=== PATIENT | female | born 1985 | race Caucasian/White ===

== ENCOUNTER 2023-01-28 08:42 | Observation (INO) ==
[2023-01-28] MEDS ORDERED: SOLU-Medrol 125 MG VIAL IVP ONE (09:06)
[2023-01-28] MEDS ORDERED: TORADOL 30 MG VIAL IVP ONE (09:06)
[2023-01-28] MEDS ORDERED: SOLU-Medrol 125 MG VIAL ONE (09:11)
[2023-01-28] MEDS ORDERED: TORADOL 30 MG VIAL ONE (09:12)
[2023-01-28] MEDS ORDERED: NS 1,000 ML IV 1,000 ML ONE (09:12)
[2023-01-28] MEDS: NS 1,000 ML IV 1,000 ML IV SCH ×2 (09:23→19:35)
[2023-01-28 09:27] LABS: BASOPHILS # (AUTO) 0.1 X10^3/uL (0.0-0.1); BASOPHILS % (AUTO) 0.5 % (0.2-1.0); EOSINOPHILS % (AUTO) 0.3 % (0.9-2.9); HEMOGLOBIN 12.2 g/dL (12.0-16.0); LYMPHOCYTES % (AUTO) 19.6 % (21.0-51.0); MEAN CORPUSCULAR HEMOGLOBIN 30.4 pg (27.0-34.0); MEAN CORPUSCULAR HGB CONC 33.8 g/dL (33.0-35.0); MEAN CORPUSCULAR VOLUME 89.9 fL (80.0-100.0); MEAN PLATELET VOLUME 8.4 fL (7.4-11.0); MONOCYTES % (AUTO) 6.6 % (0.0-13.0); NEUTROPHILS # (AUTO) 11.1 x10^3/uL (2.2-4.8); PLATELET COUNT 283 X10^3/uL (150.0-450.0); RED BLOOD COUNT 4.01 X10^6/uL (3.5-5.4); RED CELL DISTRIBUTION WIDTH 13.2 % (11.6-16.5); WHITE BLOOD COUNT 15.2 X10^3/uL (3.6-10.0)
--- NOTE | 2023-01-28 09:33 | DR.EXTPAIN ---
HPI Time seen Time Seen by Provider: 01/28/23 09:20 PCP Primary Care Physician: BRYAN GAGNON HPI Comment HPI Comment: PATIENT IS 37YR OLD FEMALE IN ER WITH GENERALIZED JOINT PAIN AND SWELLING. SEEOPPED HER CHOLESTEROL MEDICATION. NO FEVER.N IN ER SATURDAY AND GIVRN IM TORADOL AND STEROID IM ONE TIME DOSE. HELPED BUT PAIN AND SWELLING IS WORSE TODAY. NO FEVER. Complaint/Symptoms Chief Complaint Doctor Comments: GENERALIZED JOINT SWELLING AND PAIN. Chief Complaint:: Pt states that starting with the right wrist having pain and redness and swelling and now its all of her joints and they are throbbing and aching and swollen. Pt states that she was seen Saturday here in the er and was given a steroid and toradol shot and the steroid helped a little but its still bad. She was told to follow up with Nadia Gagnon today but office staff told her that they couldnt see her today so pt felt like she needed to come back here Self Treatment fo Chief Complaint: norco without relief COVID-19 Coronavirus risk:travel/contact w/high risk person: No Has patient experienced Coronavirus symptoms: No Nurses notes reviewed Nurses Notes Review: Yes Source History Provided: Patient Mode of arrival Mode of Arrival: Ambulatory Timing Onset of Chief Complaint: 01/24/23 PMH PMH Past Medical History: No Past Medical History: Dyslipidemia and [place] Past Surgical History: Yes Surgical History: Appendectomy, Cholecystectomy and [employer]OSPITAL [employer] Surgery Family History History of Family Medical Conditions: Yes Family Medical History: Diabetes Mellitus and Hypertension Social History Does patient currently use any type of tobacco product: No Have you used tobacco products in the last 12 months: No Type of Tobacco Use: None Do you use any recreational Drugs:: No Lives With: Family Lives Where: Home Travel Risk Coronavirus risk:travel/contact w/high risk person: No Has patient experienced Coronavirus symptoms: No Infectious screening In the last 2 months have you had wt loss of >10#?: NO Have you had fever, night sweats or hemotysis?: No Have you traveled outside the country in the last 6 months?: No Isolation: Standard ROS Review of Systems Constitutional: No Symptoms Reported Eyes: No Symptoms Reported ENTM: No Symptoms Reported; negative Nose Discharge or Nose Congestion Respiratoy: No Symptoms Reported; negative Moist Cough, Short of Breath or Wheez ing Cardiovascular: No Symptoms Reported; negative Chest Pain Gastrointestinal/Abdominal: No Symptoms Reported; negative Abdominal Pain, Diarrhea, Nausea or Vomiting Genitourinary: No Symptoms Reported; negative Dysuria Neurological: No Symptoms Reported; negative Headache, Weakness or Dizziness Musculoskeletal: Joint Pain (GENERALIZED.) and Joint Swelling (GENERALIZED.) Integumentary: No Symptoms Reported; negative Rash Hematologic/Lymphatic: Easy Bleeding and Easy Bruising Endocrine: No Symptoms Reported; negative Increased Thirst or Increased Urine Psychiatric: No Symptoms Reported All Other Systems: Reviewed and Negative PE Vital Signs Vitals: Vital Signs Temperature 98.2 F Pulse Rate 95 Respiratory Rate 20 Respiratory Rate 20 Blood Pressure 135/81 O2 Sat by Pulse Oximetry 98 01/28/23 08:54 01/28/23 09:23 01/28/23 09:14 Temperature 98.2 F Pulse Rate 95 H Respiratory Rate 20 20 Respiratory Effort Normal Non-Labored O2 Sat by Pulse Oximetry 98 Oxygen Delivery Method Room Air Blood Pressure 135/81 Weight 145 lb 170 lb General Limitations: No Limitations General Appearance: Alert and In No Apparent Distress Head Head Exam: Normal Inspection Eyes Eye exam: Normal Appearance; negative Scleral Icterus or Conjunctival Injection ENT ENT Exam: Normal Exam, Normal Oropharynx, Normal External Ear Exam and TM's Normal Bilaterally Neck Neck Exam: Normal Inspection and Trachea Midline; negative Tenderness Chest Chest Inspection: Normal Inspection and Symmetric Chest Wall Rise; negative Tenderness Respiratory Respiratory Exam: Normal Lung Sounds Bilat; negative Accessory Muscle Use, Chest Wall Tenderness or Respiratory Distress Respiratory Exam: Bilateral: Clear to Auscultation Cardiovascular Cardiovascular Exam: Regular Rate, Normal Rhythm and Normal Heart Sounds; negative Systolic Murmur or Diastolic Murmur Abdominal Exam Abdominal Exam: Normal Inspection, Normal Bowel Sounds, Soft and Tenderness Extremities Extremities Exam: Tenderness (TENDERNESS JOINTS) and Joint Swelling Upper Extremities Shoulder Exam: Tenderness and Swelling Elbow Exam: Tenderness and Swelling Lower Extremities Hip/Pelvis Exam: Tenderness Knee Exam: Tenderness and Swelling Back Back Exam: negative (R) CVA Tenderness or (L) CVA Tenderness Neurological Neurological Exam: Alert, Oriented X3, CN II-XII Intact, Motor Sensory Deficit and Reflexes Normal Psychiatric Psychiatric Exam: Normal Affect and Normal Mood Skin Skin Exam: Intact MDM Differential Diagnosis Differential Diagnosis: Other (GENERALIZED JOINT PAIN, MUSCULOSKELETAL PAIN.) COURSE Treatment Treatment: SEE ORDERS DONE WHILE PATIENT WAS IN ER. Consultation Consultation Comments: DISCUSSED PATIENT WITH DR. TILLEY. DEDRA ADMIT PATIENT. Education/Counseling Education/Counseling: Patient ROR Labs Reviewed Laboratory Results Reviewed?: Yes Result Diagrams: 01/29/23 04:51 01/29/23 04:51 Laboratory: WBC 15.2 X10^3/uL (3.6-10.0) H 01/28/23 09:18 RBC 4.01 X10^6/uL (3.5-5.4) 01/28/23 09:18 Hgb 12.2 g/dL (12.0-16.0) 01/28/23 09:18 Hct 36.0 % (36.0-47.0) 01/28/23 09:18 MCV 89.9 fL (80.0-100.0) 01/28/23 09:18 MCH 30.4 pg (27.0-34.0) 01/28/23 09:18 MCHC 33.8 g/dL (33.0-35.0) 01/28/23 09:18 RDW 13.2 % (11.6-16.5) 01/28/23 09:18 Plt Count 283 X10^3/uL (150.0-450.0) 01/28/23 09:18 MPV 8.4 fL (7.4-11.0) 01/28/23 09:18 Neut % (Auto) 73.0 % (42.0-75.0) 01/28/23 09:18 Lymph % (Auto) 19.6 % (21.0-51.0) L 01/28/23 09:18 [place] % (Auto) 6.6 % (0.0-13.0) 01/28/23 09:18 Eos % (Auto) 0.3 % (0.9-2.9) L 01/28/23 09:18 Baso % (Auto) 0.5 % (0.2-1.0) 01/28/23 09:18 Neut # (Auto) 11.1 x10^3/uL (2.2-4.8) H 01/28/23 09:18 Lymph # (Auto) 3.0 X10^3/uL (1.3-2.9) H 01/28/23 09:18 [place] # (Auto) 1.0 x10^3/uL (0.3-0.8) H 01/28/23 09:18 Eos # (Auto) 0.0 x10^3/uL (0.0-0.2) 01/28/23 09:18 Baso # (Auto) 0.1 X10^3/uL (0.0-0.1) 01/28/23 09:18 Absolute Nucleated RBC 0.0 /100WBC 01/28/23 09:18 ESR 38 MM/HOUR (0-20) H 01/28/23 09:18 Sodium 140 mmol/L (136-145) 01/28/23 09:18 Corrected Sodium TNP 01/28/23 09:18 Potassium 3.6 mmol/L (3.5-5.1) 01/28/23 09:18 Chloride 106 mmol/L (98-107) 01/28/23 09:18 Carbon Dioxide 23.7 mmol/L (21-32) 01/28/23 09:18 BUN 13 mg/dL (7-18) 01/28/23 09:18 Creatinine 0.61 mg/dL (0.55-1.02) 01/28/23 09:18 Est GFR (MDRD) Af Amer > 60 (>60) 01/28/23 09:18 Est GFR (MDRD) Non-Af > 60 (>60) 01/28/23 09:18 Glucose 83 mg/dL (65-99) 01/28/23 09:18 Hemoglobin A1c 5.2 % 01/28/23 09:18 Calcium 8.1 mg/dL (8.5-10.1) L 01/28/23 09:18 Corrected Calcium 8.7 mg/dL (8.5-10.1) 01/28/23 09:18 Magnesium 1.8 mg/dL (2.0-2.9) L 01/28/23 09:18 Total Bilirubin 0.30 mg/dL (0.2-1.0) 01/28/23 09:18 AST 12 Units/L (15-37) L 01/28/23 09:18 ALT 35 Units/L (12-78) 01/28/23 09:18 Alkaline Phosphatase 101 Units/L (46-116) 01/28/23 09:18 C-Reactive Protein 52.40 mg/L (0-3.0) H 01/28/23 09:18 Total Protein 6.7 g/dL (6.4-8.2) 01/28/23 09:18 Albumin 3.2 g/dL (3.4-5.0) L 01/28/23 09:18 Globulin 3.5 g/dL (2.5-4.5) 01/28/23 09:18 Albumin/Globulin Ratio 0.9 Ratio (1.1-2.1) L 01/28/23 09:18 TSH 3rd Generation 2.813 uIU/mL (0.358-3.74) 01/28/23 09:18 Opioid Opioid Risk Tool Age (Roberto box if 16-45): Yes History of Preadolescent Sexual Abuse: No Total: 1 Total Score Risk Category: Low Risk Copyright: Loi BAEZ predicting aberrant behaviors Discharge Plan Diagnosis Discharge Problem: Generalized joint pain Discharge Plan Patient Disposition: ADMITTED INPATIENT Condition: Stable
[2023-01-28 09:34] LABS: ERYTHROCYTE SEDIMENTATION RATE 38 MM/HOUR (0-20)
[2023-01-28 09:40] LABS: ALANINE AMINOTRANSFERASE 35 Units/L (12-78); ALBUMIN 3.2 g/dL (3.4-5.0); ALKALINE PHOSPHATASE 101 Units/L (46-116); ASPARTATE AMINO TRANSFERASE 12 Units/L (15-37); BLOOD UREA NITROGEN 13 mg/dL (7-18); CALCIUM 8.1 mg/dL (8.5-10.1); CARBON DIOXIDE 23.7 mmol/L (21-32); CHLORIDE 106 mmol/L (98-107); COR CA(FOR HYPOALB) 8.7 mg/dL (8.5-10.1); CREATININE 0.61 mg/dL (0.55-1.02); GLUCOSE 83 mg/dL (65-99); POTASSIUM 3.6 mmol/L (3.5-5.1); SODIUM 140 mmol/L (136-145); TOTAL PROTEIN 6.7 g/dL (6.4-8.2); eGFR NON BLACK RACES > 60 (>60)
[2023-01-28 10:19] LABS: HEMOGLOBIN A1C 5.2 %
[2023-01-28 10:21] LABS: MAGNESIUM 1.8 mg/dL (2.0-2.9); TSH (3RD GENERATION) 2.813 uIU/mL (0.358-3.74)
[2023-01-28 10:57] VITALS: BMI 27.6
[2023-01-28] MEDS ORDERED: KLOR-CON PO PRN (11:05)
[2023-01-28] MEDS ORDERED: K-RIDER 10 MEQ/NS 100 ML 10 MEQ/100 ML BAG IV PRN (11:05)
[2023-01-28] MEDS ORDERED: MICRO K EXTEN CAP 10 MEQ PO PRN (11:05)
[2023-01-28] MEDS ORDERED: K-DUR TAB 20 MEQ PO PRN (11:05)
[2023-01-28] MEDS ORDERED: POTASSIUM CHL 40 MEQ/NS 0.45% 500 ML IV PRN (11:05)
[2023-01-28] MEDS ORDERED: POTASSIUM CHL 60 MEQ/NS 0.45% 500 ML IV PRN (11:05)
[2023-01-28] MEDS ORDERED: POTASSIUM CHLORIDE LIQ PO PRN (11:05)
[2023-01-28] MEDS: MAGNESIUM SULFATE 1 GRAM/100 mL PREMIX 1 G/100 ML BAG IV PRN ×2 (11:38→13:29)
[2023-01-28] MEDS: TORADOL 15 MG VIAL IVP PRN ×2 (11:39→19:35)
[2023-01-28 11:41] LABS: FREE T4 (FREE THYROXINE) 1.05 ng/dL (0.76-1.46)
[2023-01-28 12:00] LABS: BILIRUBIN,URINE NEGATIVE (NEGATIVE); BLOOD/HEMOGLOBIN,URINE 3+ (NEGATIVE); GLUCOSE, URINE NEGATIVE (NEGATIVE); KETONES,URINE NEGATIVE (NEGATIVE); LEUKOCYTE ESTERASE ,URINE NEGATIVE (NEGATIVE); NITRITES,URINE NEGATIVE (NEGATIVE); PROTEIN,URINE NEGATIVE (NEGATIVE); UROBILINOGEN,URINE NORMAL (NORMAL)
[2023-01-28 12:17] LABS: APPEARANCE,URINE CLEAR (CLEAR); BACTERIA,URINE NEGATIVE /HPF (NEGATIVE); COLOR,URINE STRAW (YELLOW); SQUAMOUS EPITHELIAL CELL,UR RARE /HPF (NEGATIVE)
[2023-01-28 12:26] LABS: RHEUMATOID FACTOR NEGATIVE (NEGATIVE)
[2023-01-28] MEDS: SOLU-Medrol 125 MG VIAL IVP SCH ×2 (13:22→21:28)
[2023-01-28] MEDS: LOPRESSOR TAB 25 MG PO SCH (20:38)
[2023-01-28] MEDS: ATARAX TAB 10 MG PO SCH (20:40)
[2023-01-28] MEDS: RESTORIL CAP 15 MG PO PRN (23:38)
[2023-01-29] MEDS: SOLU-Medrol 125 MG VIAL IVP SCH ×3 (05:12→20:17)
[2023-01-29] MEDS: NS 1,000 ML IV 1,000 ML IV SCH ×4 (05:13→18:38)
[2023-01-29 05:24] LABS: BASOPHILS % (AUTO) 0.2 % (0.2-1.0); HEMATOCRIT 33.5 % (36.0-47.0); HEMOGLOBIN 11.6 g/dL (12.0-16.0); LYMPHOCYTES # (AUTO) 1.5 X10^3/uL (1.3-2.9); LYMPHOCYTES % (AUTO) 8.4 % (21.0-51.0); MEAN CORPUSCULAR HEMOGLOBIN 30.9 pg (27.0-34.0); MEAN CORPUSCULAR HGB CONC 34.6 g/dL (33.0-35.0); MEAN CORPUSCULAR VOLUME 89.4 fL (80.0-100.0); MEAN PLATELET VOLUME 8.6 fL (7.4-11.0); MONOCYTES # (AUTO) 0.7 x10^3/uL (0.3-0.8); MONOCYTES % (AUTO) 3.8 % (0.0-13.0); NEUTROPHILS % (AUTO) 87.6 % (42.0-75.0); PLATELET COUNT 303 X10^3/uL (150.0-450.0); RED BLOOD COUNT 3.75 X10^6/uL (3.5-5.4); RED CELL DISTRIBUTION WIDTH 12.8 % (11.6-16.5); WHITE BLOOD COUNT 18.2 X10^3/uL (3.6-10.0)
[2023-01-29 05:32] LABS: ALANINE AMINOTRANSFERASE 101 Units/L (12-78); ALBUMIN 2.8 g/dL (3.4-5.0); ALKALINE PHOSPHATASE 106 Units/L (46-116); ASPARTATE AMINO TRANSFERASE 46 Units/L (15-37); BLOOD UREA NITROGEN 10 mg/dL (7-18); CALCIUM 7.9 mg/dL (8.5-10.1); CHLORIDE 109 mmol/L (98-107); CHOL/HDL RATIO 3.4 (0.0-5.0); CHOLESTEROL 170 mg/dL (0-200); COR CA(FOR HYPOALB) 8.9 mg/dL (8.5-10.1); COR NA(FOR HYPERGLY) 143 mmol/L (136-145); CREATININE 0.47 mg/dL (0.55-1.02); GLUCOSE 122 mg/dL (65-99); HDL CHOLESTEROL 50 mg/dL (40-60); MAGNESIUM 2.3 mg/dL (2.0-2.9); POTASSIUM 4.2 mmol/L (3.5-5.1); SODIUM 142 mmol/L (136-145); TOTAL PROTEIN 6.2 g/dL (6.4-8.2); TRIGLYCERIDES 45 mg/dL (0-150); eGFR NON BLACK RACES > 60 (>60)
[2023-01-29] MEDS: LOPRESSOR TAB 25 MG PO SCH ×2 (08:41→20:16)
[2023-01-29] MEDS: PLAVIX PO SCH (08:42)
[2023-01-29] MEDS: TORADOL 15 MG VIAL IVP PRN (11:15)
[2023-01-29] MEDS: ROCEPHIN VIAL 1 GRAM 1 G in NS 100 ML IV 100 ML IV SCH (15:03)
[2023-01-29] MEDS: PROTONIX INJ 40 MG VIAL IVP SCH (15:03)
--- NOTE | 2023-01-29 17:29 | DR.H&P ---
H&P - History & Physical for Day of: H&P Date: 01/28/23 - Chief Complaint Chief Complaint: joint pain, fever, joint swelling - History of Present Illness History of Present Illness: Pt is 37 WF, ER admission after presenting with co that starting with the right wrist having pain and redness and swelling and now its all of her joints and they are throbbing and aching and swollen. Pt states that she was seen Saturday here in the er and was given a steroid and toradol shot and the steroid helped a little but its still bad. Pt reports she had a "heart attack" last month and had heart cath in [place] and was started on lipitor at that time. - Past Medical History Past Medical History: OR, Dyslipidemia - Past Surgical History Surgical History: Appendectomy, Cholecystectomy - Family History Family Medical History: Diabetes Mellitus, Hypertension - Social History Does patient currently use any type of tobacco product: No Have you used tobacco products in the last 12 months: No Type of Tobacco Use: None Does any household member use tobacco: No Alcohol Use: None Drug Use: None - Review of Systems Constitutional: Fever, Malaise Eyes: No Symptoms Reported ENT: No Symptoms Reported Respiratory: No Symptoms Reported Cardiovascular: No Symptoms Reported Gastrointestinal: Nausea Genitourinary: No Symptoms Reported Musculoskeletal: Shoulder Pain, Arm Pain, Back Pain, Hand Pain, Foot Pain Skin: Other (redness to hand joints bilaterally) Neurological: No Symptoms Reported - Physical Exam Vital Signs: Vital Signs Temperature 98.7 F Temperature 98.5 F Pulse Rate [Right Brachial] 66 Pulse Rate [Right Brachial] 82 Respiratory Rate 20 Respiratory Rate 20 Respiratory Rate 20 Respiratory Rate 18 Blood Pressure [Right Arm] 122/65 Blood Pressure [Right Arm] 128/62 O2 Sat by Pulse Oximetry 98 O2 Sat by Pulse Oximetry 95 01/29/23 16:00 Temperature 98.7 F Temperature Source Oral Pulse Rate [Right Brachial] 66 Pulse Assessment Method [Right Brachial] Dinamap Respiratory Rate 20 O2 Sat by Pulse Oximetry 98 Oxygen Delivery Method Room Air Blood Pressure [Right Arm] 122/65 Blood Pressure Mean [Right Arm] 84 Blood Pressure Source [Right Arm] Automatic Cuff Blood Pressure Position [Right Arm] Semi Mathis's Oriented: Normal Eyes: Normal Ear: Normal Nose: Normal Throat: Exudate Respiratory: RLL Diminished, LLL Diminished Cardiovascular: Normal. negative: Edema : Normal Auscultation: Bowel Sounds: Normal Palpation: Normal Tenderness: Normal Skin: Decreased Turgur, Red, Tender (base index fingers, knuckles ) Musculoskeletal: Right, Left, Elbow, Wrist, Hand, Ankle, Swelling, Tender Psychiatric: Anxiety Affect: Anxious, Depressed Speech Pattern: Appropriate - Assessment/Plan (1) Multiple joint pain Status: Acute Plan: ADMIT, CRP AND SED RATE ON ADMISSION. PAIN CONTROL, IV SOLU MEDROL. RA F ACTOR, ALLISON AND URIC ACID ON ADMISSION. REPEAT AM LABS, VERIFY HOME MEDICATIONS (2) Redness of joint Status: Acute (3) Fever Status: Acute - Allergies Allergies/Adverse Reactions: Allergies Allergy/AdvReac Type Severity Reaction Status Date / Time No Known Drug Allergies Allergy Verified 12/15/20 11:30 - Medications Home Medications: Home Medications Medication Instructions Recorded Confirmed atorvastatin 80 mg tablet 80 mg PO QPM 01/26/23 01/28/23 clopidogrel 75 mg tablet 75 mg PO QDAY 01/26/23 01/28/23 ergocalciferol (vitamin D2) 1,250 1,250 mcg PO QWEEK 01/26/23 01/28/23 mcg (50,000 unit) capsule hydroxyzine HCl 10 mg tablet 10 tab PO QPM 01/26/23 01/28/23 metoprolol tartrate 25 mg tablet 12.5 mg PO BID 01/26/23 01/28/23 azithromycin 250 mg tablet See Rx Instructions .Route .COMPLEX 01/28/23 01/28/23
--- NOTE | 2023-01-29 17:32 | PCM.PROG ---
Progress Note - Progress Note for Day of Date of Exam: 01/29/23 - Subjective Subjective: PT IS 37 WF ER ADMISSION ON 01/28 WITH CO NEW ONSET JOINT PAIN, REDNESS AND SWELLING. PT HAD CRP AND SED RATE ELEVATED ON ADMISSION. PT HAD RA FACTOR, ALLISON AND URIC ACID OBTAINED ON ADMISSION. PT REPORTS SHE HAD SORE THROAT AND LOW GRADE FEVER WITH SWOLLEN NECK LYMPH NODES ~1 WEEK AGO. THROAT CULTUR ORDERED, PT STARTED ON ROCEPHIN 1GM DAILY AND BC OBTAINED. PLAN TO REPEAT AM CRP AND SED RATE. - Past Medical Family Social History Past Med/Fam/Surg Hx: No changes since H&P Allergies: Allergies No Known Drug Allergies Allergy (Verified 12/15/20 11:30) - Review of Systems ROS: No change since H&P - Vital Signs and I&O's Vital Signs: Vital Signs Temperature 98.7 F Temperature 98.5 F Pulse Rate [Right Brachial] 66 Pulse Rate [Right Brachial] 82 Respiratory Rate 20 Respiratory Rate 20 Respiratory Rate 20 Respiratory Rate 18 Blood Pressure [Right Arm] 122/65 Blood Pressure [Right Arm] 128/62 O2 Sat by Pulse Oximetry 98 O2 Sat by Pulse Oximetry 95 01/29/23 16:00 Temperature 98.7 F Temperature Source Oral Pulse Rate [Right Brachial] 66 Pulse Assessment Method [Right Brachial] Dinamap Respiratory Rate 20 O2 Sat by Pulse Oximetry 98 Oxygen Delivery Method Room Air Blood Pressure [Right Arm] 122/65 Blood Pressure Mean [Right Arm] 84 Blood Pressure Source [Right Arm] Automatic Cuff Blood Pressure Position [Right Arm] Semi Mathis's Intake and Output: Intake & Output 01/27/23 01/28/23 01/29/23 01/30/23 11:59 11:59 11:59 11:59 Intake Total 3327 / 3327 240 / 240 Balance 3327 / 3327 240 / 240 - Physical Exam Oriented: Normal Eyes: Normal Ear: Normal Nose: Normal Throat: Exudate Respiratory: Diminished Cardiovascular: Normal. negative: Edema : Normal Auscultation: Bowel Sounds: Normal Tenderness: Normal Skin: Decreased Turgur, Red, Tender (base index fingers, knuckles ) Musculoskeletal: Right, Left, Elbow, Wrist, Hand, Ankle, Swelling, Tender Psychiatric: Anxiety Affect: Anxious, Depressed Speech Pattern: Appropriate - Laboratory and Diagnostics Result Diagrams: 01/29/23 04:51 01/29/23 04:51 Labs: 01/28/23 11:35 Urine,Clean Catch Urine Culture - Preliminary Laboratory WBC 18.2 X10^3/uL (3.6-10.0) H 01/29/23 04:51 RBC 3.75 X10^6/uL (3.5-5.4) 01/29/23 04:51 Hgb 11.6 g/dL (12.0-16.0) L 01/29/23 04:51 Hct 33.5 % (36.0-47.0) L 01/29/23 04:51 MCV 89.4 fL (80.0-100.0) 01/29/23 04:51 MCH 30.9 pg (27.0-34.0) 01/29/23 04:51 MCHC 34.6 g/dL (33.0-35.0) 01/29/23 04:51 RDW 12.8 % (11.6-16.5) 01/29/23 04:51 Plt Count 303 X10^3/uL (150.0-450.0) 01/29/23 04:51 MPV 8.6 fL (7.4-11.0) 01/29/23 04:51 Neut % (Auto) 87.6 % (42.0-75.0) H 01/29/23 04:51 Lymph % (Auto) 8.4 % (21.0-51.0) L 01/29/23 04:51 [place] % (Auto) 3.8 % (0.0-13.0) 01/29/23 04:51 Eos % (Auto) 0.0 % (0.9-2.9) L 01/29/23 04:51 Baso % (Auto) 0.2 % (0.2-1.0) 01/29/23 04:51 Neut # (Auto) 16.0 x10^3/uL (2.2-4.8) H 01/29/23 04:51 Lymph # (Auto) 1.5 X10^3/uL (1.3-2.9) 01/29/23 04:51 [place] # (Auto) 0.7 x10^3/uL (0.3-0.8) 01/29/23 04:51 Eos # (Auto) 0.0 x10^3/uL (0.0-0.2) 01/29/23 04:51 Baso # (Auto) 0.0 X10^3/uL (0.0-0.1) 01/29/23 04:51 Absolute Nucleated RBC 0.0 /100WBC 01/29/23 04:51 ESR 41 MM/HOUR (0-20) H 01/29/23 04:51 Sodium 142 mmol/L (136-145) 01/29/23 04:51 Corrected Sodium 143 mmol/L (136-145) 01/29/23 04:51 Potassium 4.2 mmol/L (3.5-5.1) 01/29/23 04:51 Chloride 109 mmol/L (98-107) H 01/29/23 04:51 Carbon Dioxide 24.0 mmol/L (21-32) 01/29/23 04:51 BUN 10 mg/dL (7-18) 01/29/23 04:51 Creatinine 0.47 mg/dL (0.55-1.02) L 01/29/23 04:51 Est GFR (MDRD) Af Amer > 60 (>60) 01/29/23 04:51 Est GFR (MDRD) Non-Af > 60 (>60) 01/29/23 04:51 Glucose 122 mg/dL (65-99) H 01/29/23 04:51 Hemoglobin A1c 5.2 % 01/28/23 09:18 Calcium 7.9 mg/dL (8.5-10.1) L 01/29/23 04:51 Corrected Calcium 8.9 mg/dL (8.5-10.1) 01/29/23 04:51 Magnesium 2.3 mg/dL (2.0-2.9) 01/29/23 04:51 Total Bilirubin 0.10 mg/dL (0.2-1.0) L 01/29/23 04:51 AST 46 Units/L (15-37) H 01/29/23 04:51 ALT 101 Units/L (12-78) H 01/29/23 04:51 Alkaline Phosphatase 106 Units/L (46-116) 01/29/23 04:51 Creatine Kinase 38 Units/L (26-192) 01/28/23 11:12 C-Reactive Protein 60.50 mg/L (0-3.0) H 01/29/23 04:51 Total Protein 6.2 g/dL (6.4-8.2) L 01/29/23 04:51 Albumin 2.8 g/dL (3.4-5.0) L 01/29/23 04:51 Globulin 3.4 g/dL (2.5-4.5) 01/29/23 04:51 Albumin/Globulin Ratio 0.8 Ratio (1.1-2.1) L 01/29/23 04:51 Triglycerides 45 mg/dL (0-150) 01/29/23 04:51 Cholesterol 170 mg/dL (0-200) 01/29/23 04:51 LDL Cholesterol, Calc 111 mg/dL (0-100) H 01/29/23 04:51 HDL Cholesterol 50 mg/dL (40-60) 01/29/23 04:51 Cholesterol/HDL Ratio 3.4 (0.0-5.0) 01/29/23 04:51 Free T4 1.05 ng/dL (0.76-1.46) 01/28/23 11:12 TSH 3rd Generation 2.813 uIU/mL (0.358-3.74) 01/28/23 09:18 Specimen Type Clean catch urine 01/28/23 11:35 Urine Color Straw (YELLOW) 01/28/23 11:35 Urine Appearance Clear (CLEAR) 01/28/23 11:35 Urine pH 6.0 (5.0 - 8.0) 01/28/23 11:35 Ur Specific [place] 1.010 (1.000-1.030) 01/28/23 11:35 Urine Protein Negative (NEGATIVE) 01/28/23 11:35 Urine Glucose (UA) Negative (NEGATIVE) 01/28/23 11:35 Urine Ketones Negative (NEGATIVE) 01/28/23 11:35 Urine Blood 3+ (NEGATIVE) 01/28/23 11:35 Urine Nitrite Negative (NEGATIVE) 01/28/23 11:35 Urine Bilirubin Negative (NEGATIVE) 01/28/23 11:35 Urine Urobilinogen Normal (NORMAL) 01/28/23 11:35 Ur Leukocyte Esterase Negative (NEGATIVE) 01/28/23 11:35 Urine RBC 3-5 /HPF (0-3) A 01/28/23 11:35 Urine WBC None seen /HPF (0-5) 01/28/23 11:35 Ur Squamous Epith Cells Rare /HPF (NEGATIVE) 01/28/23 11:35 Urine Bacteria Negative /HPF (NEGATIVE) 01/28/23 11:35 Ur Culture Indicated? No/not indicated 01/28/23 11:35 Rheumatoid Factor Negative (NEGATIVE) 01/28/23 11:12 Monoscreen Negative (NEGATIVE) 01/29/23 04:51 - Plan (1) Multiple joint pain Status: Acute Plan: CRP AND SED RATE ON ADMISSION. PAIN CONTROL, IV SOLU MEDROL. RA FACTOR, ALLISON AND URIC ACID ON ADMISSION. REPEAT AM LABS, VERIFY HOME MEDICATIONS (2) Redness of joint Status: Acute (3) Fever Status: Acute
[2023-01-29] MEDS ORDERED: TYLENOL 325 MG TAB PO PRN (19:09)
[2023-01-29] MEDS: ATARAX TAB 10 MG PO SCH (20:14)
[2023-01-29] MEDS: RESTORIL CAP 15 MG PO PRN (22:36)
[2023-01-29] MEDS: NORCO 5/325 MG TAB PO PRN (23:14)
[2023-01-30] MEDS: NS 1,000 ML IV 1,000 ML IV SCH ×4 (00:48→18:04)
[2023-01-30 05:35] LABS: BASOPHILS % (AUTO) 0.1 % (0.2-1.0); HEMATOCRIT 31.4 % (36.0-47.0); HEMOGLOBIN 10.8 g/dL (12.0-16.0); LYMPHOCYTES # (AUTO) 2.6 X10^3/uL (1.3-2.9); LYMPHOCYTES % (AUTO) 12.7 % (21.0-51.0); MEAN CORPUSCULAR HEMOGLOBIN 31.1 pg (27.0-34.0); MEAN CORPUSCULAR HGB CONC 34.4 g/dL (33.0-35.0); MEAN CORPUSCULAR VOLUME 90.5 fL (80.0-100.0); MEAN PLATELET VOLUME 8.6 fL (7.4-11.0); MONOCYTES % (AUTO) 5.2 % (0.0-13.0); NEUTROPHILS # (AUTO) 16.6 x10^3/uL (2.2-4.8); PLATELET COUNT 307 X10^3/uL (150.0-450.0); RED BLOOD COUNT 3.47 X10^6/uL (3.5-5.4); WHITE BLOOD COUNT 20.3 X10^3/uL (3.6-10.0)
[2023-01-30 05:40] LABS: ERYTHROCYTE SEDIMENTATION RATE 20 MM/HOUR (0-20)
[2023-01-30 06:00] LABS: ALANINE AMINOTRANSFERASE 186 Units/L (12-78); ALBUMIN 2.6 g/dL (3.4-5.0); ALKALINE PHOSPHATASE 101 Units/L (46-116); ASPARTATE AMINO TRANSFERASE 101 Units/L (15-37); BLOOD UREA NITROGEN 12 mg/dL (7-18); CALCIUM 7.7 mg/dL (8.5-10.1); CARBON DIOXIDE 24.4 mmol/L (21-32); CHLORIDE 112 mmol/L (98-107); COR CA(FOR HYPOALB) 8.8 mg/dL (8.5-10.1); COR NA(FOR HYPERGLY) 145 mmol/L (136-145); CREATININE 0.57 mg/dL (0.55-1.02); GLUCOSE 151 mg/dL (65-99); SODIUM 144 mmol/L (136-145); TOTAL PROTEIN 5.6 g/dL (6.4-8.2); eGFR NON BLACK RACES > 60 (>60)
[2023-01-30 06:22] LABS: ANTI-NUCLEAR ANTIBODY TEST None Detected (None Detected)
[2023-01-30] MEDS: PLAVIX PO SCH (08:22)
[2023-01-30] MEDS: ROCEPHIN VIAL 1 GRAM 1 G in NS 100 ML IV 100 ML IV SCH (08:22)
[2023-01-30] MEDS: PROTONIX INJ 40 MG VIAL IVP SCH (08:22)
[2023-01-30] MEDS: LOPRESSOR TAB 25 MG PO SCH (08:22)
[2023-01-30] MEDS: SOLU-Medrol 125 MG VIAL IVP SCH (08:23)
[2023-01-30] MEDS: NORCO 5/325 MG TAB PO PRN ×2 (09:18→15:48)
[2023-01-30 13:24] VITALS: TEMP 99.3
--- NOTE | 2023-01-30 16:10 | CT ---
HISTORYLEFT LUNG BULLA, FEVER.brSTUDYCHEST WITH [id number]/21/2022 CTTECHNIQUEMultiple axial images of the chest were obtained from the thoracic inlet to the upper abdomen after the administration of IV contrast. 100 milliliter Omnipaque 350 IV contrast utilized.. Dose reduction techniques including Automated Exposure Control (AEC) and adjustment of mA and kV were utilized.FINDINGSVisualized thyroid gland unremarkable.Thoracic aorta enhances appropriately with no evidence for dissection.Mild left ventricular dilatation suggested. No significant coronary artery calcifications.No pleural or pericardial effusion. No discernible adenopathy.Upper abdomen shows cholecystectomy clips otherwise unremarkable.Bones show no lytic or destructive process.Lungs are clear. Small cyst/bulla noted in the left upper lobe near the hilum as on prior. No pneumothorax. No suspicious pulmonary nodule.IMPRESSION1. No acute findings in the thorax. Left upper lobe bulla/cyst again noted near the hilum.2. Question left ventricular dilatation.Electronically signed by: Francois Wagoner (Jan 30, 2023 16:09:47)
[2023-01-30 18:04] VITALS: BP 134/78; PULSE 60; O2SAT 98
[2023-02-01] MEDS ORDERED: VITAMIN D (1.25MG) PO SCH (11:22)
== END 2023-01-30 19:45 | disposition home or self-care (01) ==
LOC: MED/SURG 08:42 → ER 08:42 → MED/SURG 09:59
PROVIDERS: ADMIT Internal Medicine; ATTEND Internal Medicine
DX: E78.2 Mixed hyperlipidemia; R50.9 Fever, unspecified; E83.42 Hypomagnesemia; M25.40 Effusion, unspecified joint; B95.3 Streptococcus pneumoniae as the cause of diseases classified elsewhere; M25.59 Pain in other specified joint; R79.82 Elevated C-reactive protein (CRP); R70.0 Elevated erythrocyte sedimentation rate

== ENCOUNTER 2024-09-07 06:34 | Observation (INO) ==
[2024-09-07] MEDS: NOZIN NASAL SANITIZER TP ONE (06:44)
[2024-09-07] MEDS: LR 1,000 ML IV 1,000 ML IV ONE (06:45)
[2024-09-07] MEDS: ANCEF VIAL 1 GRAM ONE (07:30)
[2024-09-07] MEDS: NS 100 ML IV 100 ML ONE (07:30)
[2024-09-07 07:36] VITALS: BMI 32.8
[2024-09-07] MEDS: DUONEB 0.5 MG/3 MG (3 mL) NEB ONE ×2 (07:37→09:43)
[2024-09-07] MEDS ORDERED: VERSED ONE (07:37)
[2024-09-07] MEDS ORDERED: FENTANYL VIAL INJ 100 mcg ONE ×2 (07:38→08:16)
[2024-09-07] MEDS ORDERED: DIPRIVAN VIAL 20 ML ONE (07:39)
[2024-09-07] MEDS ORDERED: ZEMURON 100 MG VIAL ONE (07:40)
[2024-09-07] MEDS ORDERED: BRIDION ONE ×2 (07:40→09:20)
[2024-09-07] MEDS ORDERED: QUELICIN (OR ANECTINE) ONE (07:40)
[2024-09-07] MEDS ORDERED: PRECEDEX INJ VIAL ONE (07:42)
[2024-09-07] MEDS ORDERED: KETAMINE HCL ONE (07:47)
[2024-09-07] MEDS ORDERED: SUPRANE IN ONE (07:47)
[2024-09-07] MEDS: LR 1,000 ML IV 0 ML IV PRN (07:47)
[2024-09-07] MEDS ORDERED: PEPCID 20 MG VIAL ONE (07:49)
[2024-09-07] MEDS ORDERED: ZOFRAN INJ 4 MG VIAL ONE (07:49)
[2024-09-07] MEDS: VERSED IVP PRN (07:49)
[2024-09-07] MEDS: ZOFRAN INJ 4 MG VIAL IVP PRN ×2 (07:50→11:15)
[2024-09-07] MEDS: PEPCID 20 MG VIAL IVP PRN (07:51)
[2024-09-07] MEDS: FENTANYL VIAL INJ 100 mcg IVP PRN ×2 (07:54→08:16)
[2024-09-07] MEDS: DIPRIVAN VIAL 150 ML IVP PRN (07:55)
[2024-09-07] MEDS: QUELICIN (OR ANECTINE) IVP PRN (07:55)
[2024-09-07] MEDS: KETAMINE HCL IV PRN (07:56)
[2024-09-07] MEDS: POLYMYXIN B SULFATE ONE (08:00)
[2024-09-07] MEDS: ANCEF VIAL 1 GRAM IV PRN (08:01)
[2024-09-07] MEDS: ZEMURON 100 MG VIAL IVP PRN ×2 (08:03→08:27)
[2024-09-07] MEDS: PRECEDEX INJ VIAL IVP PRN (08:06)
[2024-09-07] MEDS: BACTROBAN TOPICAL OINT ONE (08:48)
[2024-09-07] MEDS: BRIDION IVP PRN (09:07)
[2024-09-07] MEDS: DILAUDID INJ IVP PRN (09:30)
[2024-09-07] MEDS: BARHEMSYS INJ ONE (09:59)
[2024-09-07] MEDS: D5 1/2 NS 1,000 ML 1,000 ML IV SCH (10:48)
[2024-09-07] MEDS: ANCEF VIAL 1 GRAM 1 G in NS 100 ML IV 100 ML IV SCH (13:33)
[2024-09-07] MEDS ORDERED: ANCEF VIAL 1 GRAM IVP SCH (14:00)
[2024-09-07] MEDS ORDERED: PROVENTIL NEB TX 0.083% 2.5MG/ 3ML ONE (16:11)
[2024-09-07] MEDS: PROVENTIL NEB TX 0.083% 2.5MG/ 3ML NEB PRN (16:30)
[2024-09-08 05:18] VITALS: O2SAT 95
[2024-09-08 08:41] VITALS: RESP 18
--- NOTE | 2024-09-08 11:20 | RAD ---
EXAM: CHEST, 1 VIEW HISTORY: s/p hernia repair; COMPARISON: Prior study or studies were utilized for comparison during interpretation with the most relevant tameka ed 05/27/2024 TECHNIQUE: CHEST, 1 VIEW FINDINGS: Chest: Lines and tubes: None Mediastinum: Cardiac and mediastinal shadow is within normal limits for size and contour. Pulmonary vessels: Pulmonary vasculature is prominent. Lung pearson: Patchy opacities are seen Pleura: No effusion. No pneumothorax. Bones and soft tissues: No acute osseous or soft tissue abnormality. IMPRESSION: 1. Findings suggest increased volume status THIS IS AN ELECTRONICALLY VERIFIED FINAL REPORT 09/08/2024 11:17 AM - Electronically signed by Jw Hernandez MD
[2024-09-08 11:58] VITALS: BP 133/71; PULSE 98; TEMP 99.1
== END 2024-09-08 13:05 | disposition home or self-care (01) ==
LOC: SURG1 06:34 → MED/SURG 06:34
PROVIDERS: ADMIT Surgery; ATTEND Surgery
DX: K42.0 Umbilical hernia with obstruction, without gangrene; Z68.34 Body mass index [BMI] 34.0-34.9, adult; Z59.82 Transportation insecurity; Z72.0 Tobacco use; E66.01 Morbid (severe) obesity due to excess calories